=== PATIENT | female | born 1985 | race Caucasian/White ===

== ENCOUNTER 2020-09-20 18:49 | Observation (INO) | payer BC ==
[2020-09-20] MEDS ORDERED: SODIUM CHLORIDE 0.9% 1,000 ML IV STA (19:15)
[2020-09-20] MEDS ORDERED: LORazepam 2 MG/ML INJ IV STA ×2 (19:15→19:20)
--- NOTE | 2020-09-20 19:23 | ED ---
General Adult HPI - General Chief complaint: Abdominal Pain Stated complaint: salvatore from [facility] Time Seen by Provider: 09/20/20 19:14 Source: patient Mode of arrival: ambulatory Limitations: no limitations - History of Present Illness Initial comments: Dictation was produced using [employer] dictation software. please excuse any grammatical, word or spelling errors. This patient was cared for during a federal and state declared state of emergenc y secondary to Covid 19 Chief Complaint: 35-year-old female past medical history of ankylosing spondylitis, alcohol abuse presents with nausea vomiting and abdominal wall tingling for the last couple weeks History of Present Illness: 35-year-old female she's been suffering for multiple days of abdominal, nausea and vomiting. Patient states her emesis is slightly bilious nonbloody. Patient has history of alcohol abuse where she would drink almost a half a fifth of alcohol for a day for a lot of years. Patient states she has not had alcohol and couple weeks after weaning herself off by herself at home. Patient complains of some abdominal tingling that radiates from her epigastric area down to just above her knees. She denies any skin changes. She does have some mild nasal congestion. She also does have some mild diarrhea. She wasn't sure if this was her withdrawals and decided come get checked out because her symptoms aren't improving. She denies ever having been admitted to the hospital for alcohol withdrawals in the past. The ROS documented in this emergency department record has been reviewed and confirmed by me. Those systems with pertinent positive or negative responses have been documented in the HPI. All other systems are other negative and/or noncontributory. PHYSICAL EXAM: General Impression: Alert and oriented x3, not in acute distress HEENT: Normocephalic atraumatic, extra-ocular movements intact, pupils equal and reactive to light bilaterally, mucous membranes moist. Cardiovascular: Heart regular rate and rhythm Chest: Able to complete full sentences, no retractions, no tachypnea Abdomen: abdomen soft, non-tender, non-distended, no organomegaly Musculoskeletal: Pulses present and equal in all extremities, no peripheral edema Motor: no focal deficits noted Neurological: CN II-XII grossly intact, no focal motor or sensory deficits noted Skin: Intact with no visualized rashes Psych: Normal affect and mood ED course:35 year-old female presents with complaints. She is well-appearing and pleasant at bedside. Vital signs upon arrival shows heart rate of 145, rest of vital signs within acceptable limits. Laboratory evaluation obtained. Mild leukocytosis of 12.4 with MCV of 100.7. Platelet count 49, coag panel is negative. Metabolic panel shows potassium 3.3, lactic acidosis of 5.8. Urinalysis shows 2+ ketones. Norris virus is negative. Chest x-ray is nonacute. Patient be admitted for lactic acidosis likely secondary to dehydration. Given multivitamin and thiamine supplementation. Patient's abdominal tingling is likely secondary to malnutrition from alcoholism. - Related Data Home Medications Medication Instructions Recorded Confirmed Benzonatate [Tessalon Perles] 200 mg PO TID PRN 09/20/20 09/20/20 Certolizumab Pegol [Cimzia] 200 mg SQ Q14D 09/20/20 09/20/20 Esomeprazole Magnesium 40 mg PO AC-BRKFST 09/20/20 09/20/20 Iron 130mg 130 mg PO DAILY 09/20/20 09/20/20 Levocetirizine Dihydrochloride 5 mg PO DAILY 09/20/20 09/20/20 [Xyzal] Meloxicam [Mobic] 15 mg PO DAILY 09/20/20 09/20/20 Montelukast [Singulair] 10 mg PO DAILY 09/20/20 09/20/20 Multivitamins, Thera [Multivitamin 1 tab PO DAILY 09/20/20 09/20/20 (formulary)] Ondansetron [Zofran ODT] 4 - 8 mg PO Q8H PRN 09/20/20 09/20/20 Turmeric Root Extract [Turmeric] 1,000 mg PO DAILY 09/20/20 09/20/20 Allergies Allergy/AdvReac Type Severity Reaction Status Date / Time No Known Allergies Allergy Verified 09/20/20 20:40 Review of Systems ROS Statement: Those systems with pertinent positive or pertinent negative responses have been documented in the HPI. ROS Other: All systems not noted in ROS Statement are negative. Past Medical History Additional Past Medical History / Comment(s): ankylosing spondylitis, bilateral salpingectomy. History of Any Multi-Drug Resistant Organisms: None Reported Past Surgical History: Tonsillectomy Past Psychological History: No Psychological Hx Reported Smoking Status: Never smoker Past Alcohol Use History: Abuse, Daily, Heavy Past Drug Use History: None Reported General Exam Limitations: no limitations Course Vital Signs 09/20/20 09/20/20 09/20/20 19:01 19:55 20:00 Temperature 98.6 F Pulse Rate 145 H 96 79 Respiratory 18 18 Rate Blood Pressure 120/91 123/92 123/92 O2 Sat by Pulse 98 96 99 Oximetry 09/20/20 09/20/20 09/20/20 20:30 21:00 21:30 Temperature Pulse Rate 84 Respiratory 18 Rate Blood Pressure 134/93 124/91 130/89 O2 Sat by Pulse 100 98 99 Oximetry Medical Decision Making - Lab Data Result diagrams: 09/20/20 19:44 09/20/20 19:44 Lab Results 09/20/20 09/20/20 09/20/20 Range/Units 19:44 19:44 19:44 WBC 12.4 H (3.8-10.6) k/uL RBC 4.05 (3.80-5.40) m/uL Hgb 13.8 (11.4-16.0) gm/dL Hct 42.0 (34.0-46.0) % MCV 103.7 H (80.0-100.0) fL MCH 33.9 (25.0-35.0) pg MCHC 32.7 (31.0-37.0) g/dL RDW 14.2 (11.5-15.5) % Plt Count 489 H (150-450) k/uL MPV 7.4 Neutrophils % 76 % Lymphocytes % 14 % Monocytes % 8 % Eosinophils % 1 % Basophils % 1 % Neutrophils # 9.4 H (1.3-7.7) k/uL Lymphocytes # 1.7 (1.0-4.8) k/uL Monocytes # 0.9 (0-1.0) k/uL Eosinophils # 0.1 (0-0.7) k/uL Basophils # 0.1 (0-0.2) k/uL Macrocytosis Slight PT (9.0-12.0) sec INR (<1.2) APTT (22.0-30.0) sec Sodium 138 (137-145) mmol/L Potassium 3.3 L (3.5-5.1) mmol/L Chloride 100 (98-107) mmol/L Carbon Dioxide 20 L (22-30) mmol/L Anion Gap 18 mmol/L BUN 5 L (7-17) mg/dL Creatinine 0.73 (0.52-1.04) mg/dL Est GFR (CKD-EPI)AfAm >90 (>60 ml/min/1.73 sqM) Est GFR (CKD-EPI)NonAf >90 (>60 ml/min/1.73 sqM) Glucose 176 H (74-99) mg/dL Plasma Lactic Acid Regino 5.8 H* (0.7-2.0) mmol/L Calcium 9.2 (8.4-10.2) mg/dL Total Bilirubin 1.6 H (0.2-1.3) mg/dL AST 109 H (14-36) U/L ALT 46 H (4-34) U/L Alkaline Phosphatase 123 (38-126) U/L Total Protein 7.6 (6.3-8.2) g/dL Albumin 4.3 (3.5-5.0) g/dL Lipase 394 H (23-300) U/L Urine Color Urine Appearance (Clear) Urine pH (5.0-8.0) Ur Specific [place] (1.001-1.035) Urine Protein (Negative) Urine Glucose (UA) (Negative) Urine Ketones (Negative) Urine Blood (Negative) Urine Nitrite (Negative) Urine Bilirubin (Negative) Urine Urobilinogen (<2.0) mg/dL Ur Leukocyte Esterase (Negative) Urine HCG, Qual (Not Detectd) Serum Alcohol <10 mg/dL Coronavirus (PCR) (Not Detectd) 09/20/20 09/20/20 09/20/20 Range/Units 19:44 19:44 19:44 WBC (3.8-10.6) k/uL RBC (3.80-5.40) m/uL Hgb (11.4-16.0) gm/dL Hct (34.0-46.0) % MCV (80.0-100.0) fL MCH (25.0-35.0) pg MCHC (31.0-37.0) g/dL RDW (11.5-15.5) % Plt Count (150-450) k/uL MPV Neutrophils % % Lymphocytes % % Monocytes % % Eosinophils % % Basophils % % Neutrophils # (1.3-7.7) k/uL Lymphocytes # (1.0-4.8) k/uL Monocytes # (0-1.0) k/uL Eosinophils # (0-0.7) k/uL Basophils # (0-0.2) k/uL Macrocytosis PT 10.8 (9.0-12.0) sec INR 1.1 (<1.2) APTT 24.0 (22.0-30.0) sec Sodium (137-145) mmol/L Potassium (3.5-5.1) mmol/L Chloride (98-107) mmol/L Carbon Dioxide (22-30) mmol/L Anion Gap mmol/L BUN (7-17) mg/dL Creatinine (0.52-1.04) mg/dL Est GFR (CKD-EPI)AfAm (>60 ml/min/1.73 sqM) Est GFR (CKD-EPI)NonAf (>60 ml/min/1.73 sqM) Glucose (74-99) mg/dL Plasma Lactic Acid Regino (0.7-2.0) mmol/L Calcium (8.4-10.2) mg/dL Total Bilirubin (0.2-1.3) mg/dL AST (14-36) U/L ALT (4-34) U/L Alkaline Phosphatase (38-126) U/L Total Protein (6.3-8.2) g/dL Albumin (3.5-5.0) g/dL Lipase (23-300) U/L Urine Color Urine Appearance (Clear) Urine pH (5.0-8.0) Ur Specific [place] (1.001-1.035) Urine Protein (Negative) Urine Glucose (UA) (Negative) Urine Ketones (Negative) Urine Blood (Negative) Urine Nitrite (Negative) Urine Bilirubin (Negative) Urine Urobilinogen (<2.0) mg/dL Ur Leukocyte Esterase (Negative) Urine HCG, Qual Not Detected (Not Detectd) Serum Alcohol mg/dL Coronavirus (PCR) Not Detected (Not Detectd) 09/20/20 Range/Units 19:44 WBC (3.8-10.6) k/uL RBC (3.80-5.40) m/uL Hgb (11.4-16.0) gm/dL Hct (34.0-46.0) % MCV (80.0-100.0) fL MCH (25.0-35.0) pg MCHC (31.0-37.0) g/dL RDW (11.5-15.5) % Plt Count (150-450) k/uL MPV Neutrophils % % Lymphocytes % % Monocytes % % Eosinophils % % Basophils % % Neutrophils # (1.3-7.7) k/uL Lymphocytes # (1.0-4.8) k/uL Monocytes # (0-1.0) k/uL Eosinophils # (0-0.7) k/uL Basophils # (0-0.2) k/uL Macrocytosis PT (9.0-12.0) sec INR (<1.2) APTT (22.0-30.0) sec Sodium (137-145) mmol/L Potassium (3.5-5.1) mmol/L Chloride (98-107) mmol/L Carbon Dioxide (22-30) mmol/L Anion Gap mmol/L BUN (7-17) mg/dL Creatinine (0.52-1.04) mg/dL Est GFR (CKD-EPI)AfAm (>60 ml/min/1.73 sqM) Est GFR (CKD-EPI)NonAf (>60 ml/min/1.73 sqM) Glucose (74-99) mg/dL Plasma Lactic Acid Regino (0.7-2.0) mmol/L Calcium (8.4-10.2) mg/dL Total Bilirubin (0.2-1.3) mg/dL AST (14-36) U/L ALT (4-34) U/L Alkaline Phosphatase (38-126) U/L Total Protein (6.3-8.2) g/dL Albumin (3.5-5.0) g/dL Lipase (23-300) U/L Urine Color Yellow Urine Appearance Clear (Clear) Urine pH 7.5 (5.0-8.0) Ur Specific [place] 1.007 (1.001-1.035) Urine Protein Negative (Negative) Urine Glucose (UA) Negative (Negative) Urine Ketones 2+ H (Negative) Urine Blood Negative (Negative) Urine Nitrite Negative (Negative) Urine Bilirubin Negative (Negative) Urine Urobilinogen 4.0 (<2.0) mg/dL Ur Leukocyte Esterase Negative (Negative) Urine HCG, Qual (Not Detectd) Serum Alcohol mg/dL Coronavirus (PCR) (Not Detectd) Disposition Clinical Impression: Lactic acidosis Disposition: ADMITTED IP TO THIS HOSP Condition: Fair Referrals: None,Stated [Primary Care Provider] - 1-2 days Decision Time: 22:06
[2020-09-20 20:26] LABS: Basophils # (A) 0.1 k/uL (0-0.2); Basophils % (A) 1 %; Eosinophils # (A) 0.1 k/uL (0-0.7); Eosinophils % (A) 1 %; HGB 13.8 gm/dL (11.4-16.0); Lymphocytes # (A) 1.7 k/uL (1.0-4.8); Lymphocytes % (A) 14 %; MCH 33.9 pg (25.0-35.0); MCHC 32.7 g/dL (31.0-37.0); MCV 103.7 fL (80.0-100.0); Macrocytosis Slight; Mean Platelet Volume 7.4; Monocytes # (A) 0.9 k/uL (0-1.0); Monocytes % (A) 8 %; Neutrophils # (A) 9.4 k/uL (1.3-7.7); Neutrophils % (A) 76 %; Platelet Count 489 k/uL (150-450); RBC 4.05 m/uL (3.80-5.40); RDW 14.2 % (11.5-15.5); WBC 12.4 k/uL (3.8-10.6)
[2020-09-20 20:34] LABS: AST 109 U/L (14-36); African American GFR (CKD) >90 (>60 ml/min/1.73 sqM); Albumin 4.3 g/dL (3.5-5.0); Alcohol <10 mg/dL; Alkaline Phosphatase 123 U/L (38-126); Anion Gap 18 mmol/L; Blood Urea Nitrogen 5 mg/dL (7-17); Calcium 9.2 mg/dL (8.4-10.2); Carbon Dioxide 20 mmol/L (22-30); Chloride 100 mmol/L (98-107); Glucose 176 mg/dL (74-99); Lipase 394 U/L (23-300); Non-African American GFR(CKD) >90 (>60 ml/min/1.73 sqM); Potassium 3.3 mmol/L (3.5-5.1); Sodium 138 mmol/L (137-145); Total Bilirubin 1.6 mg/dL (0.2-1.3); Total Protein 7.6 g/dL (6.3-8.2)
[2020-09-20 20:40] LABS: INR 1.1 (<1.2); Prothrombin Time 10.8 sec (9.0-12.0)
[2020-09-20 20:43] LABS: ALT 46 U/L (4-34)
[2020-09-20] MEDS ORDERED: POTASSIUM CHLORIDE 10 MEQ in WATER FOR INJECTION 1 100ML.BAG IVPB STA (21:08)
--- NOTE | 2020-09-20 21:54 | XR ---
EXAMINATION: XR chest 1V portable DATE AND TIME: 09/20/2020 9:42 PM CLINICAL INDICATION: PHH; tachycardia TECHNIQUE: Departmental protocol COMPARISON: None FINDINGS: The lungs are clear. The pleural spaces are negative. The cardiac silhouette is not enlarged. The remainder of the mediastinal silhouette is unremarkable. The skeletal structures and soft tissues are negative for acute findings. IMPRESSION: NO ACUTE PROCESS.
[2020-09-20 22:01] LABS: Appearance,Urine Clear (Clear); Bilirubin,Urine Negative (Negative); Blood,Urine Negative (Negative); Color,Urine Yellow; Glucose,Urine (UA) Negative (Negative); Ketones,Urine 2+ (Negative); Leukocyte Esterase,Urine Negative (Negative); Nitrite,Urine Negative (Negative); PH, Urine 7.5 (5.0-8.0); Protein,Urine Negative (Negative); Specific Gravity,Urine 1.007 (1.001-1.035)
[2020-09-20] MEDS ORDERED: ONDANSETRON 4 MG/2 ML VIAL IVP PRN (22:01)
[2020-09-20] MEDS ORDERED: NALOXONE 0.4 MG/ML 1 ML VIAL IV PRN (22:01)
[2020-09-20] MEDS ORDERED: LORazepam 2 MG/ML INJ IV PRN (22:04)
[2020-09-20] MEDS: SODIUM CHLORIDE 0.9% 1,000 ML IV SCH (23:00)
[2020-09-21] MEDS: MULTIVITAMINS, THERA 1 EACH TAB PO SCH ×2 (00:40→09:05)
--- NOTE | 2020-09-21 01:25 | P.HPIM ---
History of Present Illness H&P Date: 09/20/20 Patient is a 35-year-old female with a PMH of ankylosing spondylitis, EtOH abuse who presents to the emergency room with complaints of intractable nausea and vomiting along with abdominal and chest wall tingling over the past few weeks. The patient notes that she recently quit drinking after several years of drinking one half of a fifth of hard liquor daily and she notes that her last drink was September 07. She notes that 2 days after her last drink, she noticed lower abdominal wall tingling, radiating up towards her chest. The tingling then gradually spread to both sides of her chest and has remained as such over the past few days. She reports an inability to keep down most solids and liquids over the past 2 weeks due to multiple episodes of nonbloody none bilious emesis. She denied abdominal pain but reports daily soft bowel movements. Notes that she initially had some shaking for a few days after her last drink but that all has since resolved. Denied history of alcohol withdrawal or having to be hospitalized for drinking. She also denied visual disturbances, weakness, or urinary complaints. Denied gait disturbances. Denied chest pain, shortness of breath, fever, chills, cough. She underwent an extensive outpatient in the emergency room which was all reviewed. Chest x-ray was unremarkable with EKG showing normal sinus rhythm at 85 bpm with T-wave inversions in leads II, III, aVF, and V1 to V5. Laboratory evaluation was reviewed with a lactic acid of 5.8, potassium 3.3, CO2 20, BUN 5, and a CBC count 12.4, platelets 49, MCV 103.7, AST 109, ALT 46, and a lipase of 394. Coronavirus testing was negative. Review of Systems Pertinent positives and negatives as discussed in HPI, a complete review of systems was performed and all other systems are negative. Past Medical History Additional Past Medical History / Comment(s): ankylosing spondylitis, bilateral salpingectomy. History of Any Multi-Drug Resistant Organisms: None Reported Past Surgical History: Tonsillectomy Past Psychological History: No Psychological Hx Reported Smoking Status: Never smoker Past Alcohol Use History: Abuse, Daily, Heavy Past Drug Use History: None Reported Medications and Allergies Home Medications Medication Instructions Recorded Confirmed Type Benzonatate [Tessalon Perles] 200 mg PO TID PRN 09/20/20 09/20/20 History Certolizumab Pegol [Cimzia] 200 mg SQ Q14D 09/20/20 09/20/20 History Esomeprazole Magnesium 40 mg PO AC-BRKFST 09/20/20 09/20/20 History Iron 130mg 130 mg PO DAILY 09/20/20 09/20/20 History Levocetirizine Dihydrochloride 5 mg PO DAILY 09/20/20 09/20/20 History [Xyzal] Meloxicam [Mobic] 15 mg PO DAILY 09/20/20 09/20/20 History Montelukast [Singulair] 10 mg PO DAILY 09/20/20 09/20/20 History Multivitamins, Thera [Multivitamin 1 tab PO DAILY 09/20/20 09/20/20 History (formulary)] Ondansetron [Zofran ODT] 4 - 8 mg PO Q8H PRN 09/20/20 09/20/20 History Turmeric Root Extract [Turmeric] 1,000 mg PO DAILY 09/20/20 09/20/20 History Allergies Allergy/AdvReac Type Severity Reaction Status Date / Time No Known Allergies Allergy Verified 09/20/20 20:40 Physical Exam Vitals: Vital Signs Temp Pulse Resp BP Pulse Ox 09/20/20 23:02 103 H 18 126/92 97 09/20/20 21:30 84 18 130/89 99 09/20/20 21:00 124/91 98 09/20/20 20:30 134/93 100 09/20/20 20:00 79 18 123/92 99 09/20/20 19:55 96 123/92 96 09/20/20 19:01 98.6 F 145 H 18 120/91 98 Intake and Output 09/20/20 09/20/20 09/21/20 14:59 22:59 06:59 Other: Weight 71.169 kg General: non toxic, no distress, appears at stated age, normal weight Derm: no unusual rashes/lesions no unusual ecchymoses, warm, dry Head: atraumatic, normocephalic, symmetric Eyes: EOMI, no lid lag, anicteric sclera, pupils equal round reactive to light ENT: Nose and ears atraumatic, no thrush, no pharyngeal erythema Neck: No thyromegaly, no cervical lymphadenopathy, trachea midline, supple Mouth: no lip lesion, mucus membranes dry, no tongue fasciculations noted Cardiovascular: S1S2 reg, no murmur, positive posterior tibial pulse bilateral, no edema, capillary refill less than 2 seconds Lungs: CTA bilateral, no rhonchi, no rales , no accessory muscle use Abdominal: soft, nontender to palpation, no guarding, no appreciable organomeg digna, normal bowel sounds Ext: no gross muscle atrophy, muscle strength 5 out of 5 in all 4 extremities grossly, no contractures, Neuro: CN II-XI grossly intact, light touch intact all 4 extremities, some decreased sensation to light touch noted over lower abdomen and upper chest bilaterally, finger to nose within normal limits, no outstretched hand tremor Psych: Alert, oriented, appropriate affect Results CBC & Chem 7: 09/20/20 19:44 09/20/20 19:44 Labs: Abnormal Lab Results - Last 24 Hours (Table) 09/20/20 09/20/20 09/20/20 Range/Units 19:44 19:44 19:44 WBC 12.4 H (3.8-10.6) k/uL MCV 103.7 H (80.0-100.0) fL Plt Count 489 H (150-450) k/uL Neutrophils # 9.4 H (1.3-7.7) k/uL Potassium 3.3 L (3.5-5.1) mmol/L Carbon Dioxide 20 L (22-30) mmol/L BUN 5 L (7-17) mg/dL Glucose 176 H (74-99) mg/dL Plasma Lactic Acid Regino 5.8 H* (0.7-2.0) mmol/L Total Bilirubin 1.6 H (0.2-1.3) mg/dL AST 109 H (14-36) U/L ALT 46 H (4-34) U/L Lipase 394 H (23-300) U/L Urine Ketones (Negative) 09/20/20 Range/Units 19:44 WBC (3.8-10.6) k/uL MCV (80.0-100.0) fL Plt Count (150-450) k/uL Neutrophils # (1.3-7.7) k/uL Potassium (3.5-5.1) mmol/L Carbon Dioxide (22-30) mmol/L BUN (7-17) mg/dL Glucose (74-99) mg/dL Plasma Lactic Acid Regino (0.7-2.0) mmol/L Total Bilirubin (0.2-1.3) mg/dL AST (14-36) U/L ALT (4-34) U/L Lipase (23-300) U/L Urine Ketones 2+ H (Negative) Assessment and Plan Plan: Intractable nausea and vomiting in setting of chronic EtOH abuse -Unclear etiology -Continue with symptomatic management for now -IV fluids -Antiemetics -Continue with thiamine, folic acid, multivitamin Abdominal and chest wall numbness -Obtain neurology consult Hypokalemia -Replace and monitor Lactic acidosis -Monitor for resolution Abnormal LFTs, likely secondary to EtOH abuse -Monitor for now Lipase elevated -Likely due to chronic alcohol abuse -Continue to monitor for now DVT prophylaxis -Heparin subq The patient is admitted with an anticipated less than 2 midnight stay for evaluation of nausea and vomiting CODE STATUS: Full Code Discussed with: Patient Anticipated discharge date: in am Anticipated discharge place: Home A total of 40 minutes was spent on the care of this complex patient more than 50% of the time was spent in counseling and care coordination.
[2020-09-21] MEDS: THIAMINE 100 MG TAB PO SCH ×2 (06:56→09:05)
[2020-09-21 08:03] LABS: HCT 32.4 % (34.0-46.0); HGB 11.5 gm/dL (11.4-16.0); MCH 36.7 pg (25.0-35.0); MCHC 35.6 g/dL (31.0-37.0); Macrocytosis Slight; Mean Platelet Volume 6.8; Platelet Count 297 k/uL (150-450); RBC 3.15 m/uL (3.80-5.40); RDW 13.5 % (11.5-15.5); WBC 6.9 k/uL (3.8-10.6)
[2020-09-21 08:13] LABS: ALT 31 U/L (4-34); AST 67 U/L (14-36); African American GFR (CKD) >90 (>60 ml/min/1.73 sqM); Alkaline Phosphatase 85 U/L (38-126); Anion Gap 5 mmol/L; Blood Urea Nitrogen 3 mg/dL (7-17); Calcium 7.9 mg/dL (8.4-10.2); Carbon Dioxide 27 mmol/L (22-30); Chloride 107 mmol/L (98-107); Glucose 93 mg/dL (74-99); Magnesium 1.5 mg/dL (1.6-2.3); Non-African American GFR(CKD) >90 (>60 ml/min/1.73 sqM); Sodium 139 mmol/L (137-145); Total Bilirubin 1.3 mg/dL (0.2-1.3); Total Protein 5.7 g/dL (6.3-8.2)
[2020-09-21] MEDS ORDERED: THIAMINE 100 MG in SODIUM CHLORIDE 0.9% 50 ML IVPB SCH (09:00)
[2020-09-21] MEDS: HEPARIN SODIUM,PORCINE 5,000 UNIT/ML 1 ML VIAL SQ SCH ×3 (09:05→23:49)
[2020-09-21] MEDS: FOLIC ACID 1 MG TAB PO SCH (09:05)
[2020-09-21] MEDS ORDERED: POTASSIUM CHLORIDE ER 20 MEQ TAB.ER PO STA (09:21)
--- NOTE | 2020-09-21 09:35 | P.CNNES ---
History of Present Illness Consult date: 09/21/20 Requesting physician: Jovanny Tirado Reason for Consult: numbness History of Present Illness: This is a 35-year-old right-handed woman with medical history of ankylosing spondylitis, alcohol abuse the presented emergency department on 09/20/2020 with nausea, vomiting, abdominal pain as well as the tingling in periumbilical region for the last 2 1/2 weeks. The patient drinks about half a fifth of alcohol daily and that has been drinking for last 2-3 years but stopped the day after 2019. Initially for the last 2 and half weeks that she noticed.. Umbilical numbness and tingling and then that she felt like it was normal for moving downwards to her inguinal area and into the breast area she said there is a patchy area just before her breast that felt normal. 2-3 days after that. Umbilical numbness she started having nausea, vomiting and diarrhea and has 3-4 episodes a day. She denies being on any new medications recently. She denies drinking any further alcohol she said she might a drink one the more timesand she felt that she was a and withdrawal other than that she has not been drinking the alcohol at all. She denies any tobacco use or any illicit drug use. Patient feels like she is having generalized weakness. Denies of any visual disturbance, any focal weakness, any difficulty getting her words out or difficulty swallowing. Denies any visual disturbance. She stated that she's a ble to walk without any difficulty. Denies any bladder or bowel incontinence or frequency other than the diarrhea. Denies any fever or coughs. Workup in the hospital consisted of: Initial vital signs: His blood pressure of 120/91, heart rate of 145, respiratory of 18, temperature of 98.6 Fahrenheit oral and pulse ox of 98% room air. No CT of the head was performed. White blood cell on initial presentation 12.4 on repeated 6.9. The MCV is 103.7 the. And platelets 489 which is elevated that. Potassium is 3.3. The glucose serum is 176. The plasma lactic acid is 5.8. AST of 109 and the ALTs 46. The calcium is 9.2 repeated is 7.9. Magnesium is a 1.5 Serum alcohol level was less than 10. Review of Systems Review of system: The 12 point system was reviewed and apparent positive and negative per HPI. Past Medical History Additional Past Medical History / Comment(s): ankylosing spondylitis, bilateral salpingectomy. History of Any Multi-Drug Resistant Organisms: None Reported Past Surgical History: Tonsillectomy Past Anesthesia/Blood Transfusion Reactions: No Reported Reaction Past Psychological History: No Psychological Hx Reported Smoking Status: Never smoker Past Alcohol Use History: Abuse, Daily, Heavy Past Drug Use History: None Reported - Past Family History Father Family Medical History: Asthma, Cancer, Fibromyalgia, Neurologic Disorder Additional Family Medical History / Comment(s): Thyroid cancer, encephalitis, Parkinson's Mother Additional Family Medical History / Comment(s): States, "mom has a lot of cardiac issues. A lot of cancer runs in our family with aunts, uncles and grandparents". Sister(s) Additional Family Medical History / Comment(s): Crohn's. Medications and Allergies Home Medications Medication Instructions Recorded Confirmed Type Benzonatate [Tessalon Perles] 200 mg PO TID PRN 09/20/20 09/20/20 History Certolizumab Pegol [Cimzia] 200 mg SQ Q14D 09/20/20 09/20/20 History Esomeprazole Magnesium 40 mg PO AC-BRKFST 09/20/20 09/20/20 History Iron 130mg 130 mg PO DAILY 09/20/20 09/20/20 History Levocetirizine Dihydrochloride 5 mg PO DAILY 09/20/20 09/20/20 History [Xyzal] Meloxicam [Mobic] 15 mg PO DAILY 09/20/20 09/20/20 History Montelukast [Singulair] 10 mg PO DAILY 09/20/20 09/20/20 History Multivitamins, Thera [Multivitamin 1 tab PO DAILY 09/20/20 09/20/20 History (formulary)] Ondansetron [Zofran ODT] 4 - 8 mg PO Q8H PRN 09/20/20 09/20/20 History Turmeric Root Extract [Turmeric] 1,000 mg PO DAILY 09/20/20 09/20/20 History Allergies Allergy/AdvReac Type Severity Reaction Status Date / Time No Known Allergies Allergy Verified 09/21/20 03:02 Physical Examination - Vital Signs Vital Signs: Vital Signs Temp Pulse Pulse Resp BP BP Pulse Ox 09/21/20 01:15 98.3 F 67 18 125/88 99 09/20/20 23:02 103 H 18 126/92 97 09/20/20 21:30 84 18 130/89 99 09/20/20 21:00 124/91 98 09/20/20 20:30 134/93 100 09/20/20 20:00 79 18 123/92 99 09/20/20 19:55 96 123/92 96 09/20/20 19:01 98.6 F 145 H 18 120/91 98 Intake and Output 09/20/20 09/21/20 09/21/20 22:59 06:59 14:59 Output Total 300 Balance -300 Output: Urine 300 Other: Voiding Method Toilet Weight 71.169 kg 70.307 kg GENERAL: The patient is lying in bed and is not in acute distress. CHEST: The heart rate is regular rate rhythm. No murmurs to auscultation. LUNG: Clear to auscultation bilaterally no wheezing noted throughout. Not labored breathing. ABDOMEN/GI: Bowel sounds present in all 4 quadrants. No tenderness to palpation throughout. NEUROLOGICAL: Higher mental function: The patient is awake, alert, oriented to self, place and time. Patient is following commands. No aphasia and no neglect. Cranial nerves: The pupils are round, equal and reactive to light and accommodation. Visual rahman are full to confrontation throughout. Extraocular movement is intact no nystagmus is noted. Facial sensation is normal to touch throughout. The facial strength is normal throughout. Hearing is normal bilaterally to hand rub. Tongue is midline and moved [id number] without any difficulty. No dysarthria is noted. Shoulder shrug is normal bilaterally. Motor: Gait is deferred. The strength is 5 over 5 throughout. Normal tone and bulk. Cerebellum: Normal finger to nose and heel to ariza bilaterally. Sensation: Sensation was decreased to pinprick around the periumbilical region only otherwise the sensation was normal throughout. Reflexes (right/left): 2+ throughout. Plantars are downgoing bilaterally. Results - Laboratory Findings CBC and BMP: 09/21/20 07:28 09/21/20 07:28 Abnormal Lab Findings: Abnormal Labs 09/20/20 09/20/20 09/20/20 19:44 19:44 19:44 WBC 12.4 H RBC Hct MCV 103.7 H MCH Plt Count 489 H Neutrophils # 9.4 H Potassium 3.3 L Carbon Dioxide 20 L BUN 5 L Glucose 176 H Plasma Lactic Acid Regino 5.8 H* Calcium Magnesium Total Bilirubin 1.6 H AST 109 H ALT 46 H Total Protein Albumin Lipase 394 H Urine Ketones 09/20/20 09/21/20 09/21/20 19:44 07:28 07:28 WBC RBC 3.15 L Hct 32.4 L MCV 103.0 H MCH 36.7 H Plt Count Neutrophils # Potassium 3.0 L Carbon Dioxide BUN 3 L Glucose Plasma Lactic Acid Regino Calcium 7.9 L Magnesium 1.5 L Total Bilirubin AST 67 H ALT Total Protein 5.7 L Albumin 3.0 L Lipase Urine Ketones 2+ H Assessment and Plan Assessment: This is a 35-year-old woman with history of alcohol abuse, ankles and spondylitis the presented emergency department on 09/20/2020 because of nausea, vomiting, abdominal pain and tingling for the last couple weeks. Paresthesia around the periumbilical region possibly due to electrode imbalance, and possibly vitamin D she deficiency especially with macrocytosis. Need to rule out any thoracic or lumbar legion. Macrocytosis likely from folate or vitamin B12 deficiency from alcohol use. Electrolyte imbalance (hypomagnesemia, hypokalemia) Alcohol abuse Elevated AST more than ALT due to alcohol use Leukocytosis likely reactive Elevated Lipase Plan: Ordered folic acid level and vitamin B12 level. I also ordered ionized calcium. Thiamine 100 mg daily is ordered by the ED team and we will change it to IV since the patient continues to have vomiting and diarrhea. Start the patient on the vitamin B12 IM 1000 g daily and once the patient vomiting and diarrhea subsides we can change it to by mouth. Patient is started on folic acid 1 mg daily by the primary team. Ordered MRI of the thoracic and the lumbar to rule out any lesion. Ordered CT of the head of the brain to rule out any intracranial process which I highly doubt. She was counseled on the alcohol cessation. We'll defer the electrolyte imbalance management to the primary team. The patient was counseled on continuing to abstain from alcohol use. The plan was discussed with the patient as well as with the primary team. Thank you for the consultation. Nahun Steinberg M.D. Neuro-hospitalist Time with Patient: Greater than 30
[2020-09-21 10:40] LABS: Ionized Calcium 4.7 mg/dL (4.5-5.3)
--- NOTE | 2020-09-21 11:00 | P.PN ---
Subjective Progress Note Date: 09/21/20 No new complaints. Ongoing numbness surrounding the umbilicus. Objective - Vital Signs Vital signs: Vital Signs Temp 97.3 F L 09/21/20 08:20 Pulse 96 09/21/20 08:20 Resp 16 09/21/20 08:20 BP 133/88 09/21/20 08:20 Pulse Ox 96 09/21/20 08:20 Intake & Output 09/20/20 09/21/20 09/21/20 18:59 06:59 18:59 Output Total 300 Balance -300 Weight 70.307 kg Output: Urine 300 Other: Voiding Method Toilet - Exam Gen: awake, alert HEENT: normocephalic, atraumatic, good hearing acuity, moist mucous membranes Resp: good air exchange, breathing comfortably with no accessory muscle use CVS: good distal perfusion x 4, GI: soft, NTTP, ND : no SPT, no CVAT, bond catheter not present MSK: no pitting edema, no clubbing Neuro: non-focal, moving all extremities Psych: cooperative, euthymic mood - Labs CBC & Chem 7: 09/21/20 07:28 09/21/20 07:28 Labs: Abnormal Lab Results - Last 24 Hours (Table) 09/20/20 09/20/20 09/20/20 Range/Units 19:44 19:44 19:44 WBC 12.4 H (3.8-10.6) k/uL RBC (3.80-5.40) m/uL Hct (34.0-46.0) % MCV 103.7 H (80.0-100.0) fL MCH (25.0-35.0) pg Plt Count 489 H (150-450) k/uL Neutrophils # 9.4 H (1.3-7.7) k/uL Potassium 3.3 L (3.5-5.1) mmol/L Carbon Dioxide 20 L (22-30) mmol/L BUN 5 L (7-17) mg/dL Glucose 176 H (74-99) mg/dL Plasma Lactic Acid Regino 5.8 H* (0.7-2.0) mmol/L Calcium (8.4-10.2) mg/dL Magnesium (1.6-2.3) mg/dL Total Bilirubin 1.6 H (0.2-1.3) mg/dL AST 109 H (14-36) U/L ALT 46 H (4-34) U/L Total Protein (6.3-8.2) g/dL Albumin (3.5-5.0) g/dL Lipase 394 H (23-300) U/L Urine Ketones (Negative) 09/20/20 09/21/20 09/21/20 Range/Units 19:44 07:28 07:28 WBC (3.8-10.6) k/uL RBC 3.15 L (3.80-5.40) m/uL Hct 32.4 L (34.0-46.0) % MCV 103.0 H (80.0-100.0) fL MCH 36.7 H (25.0-35.0) pg Plt Count (150-450) k/uL Neutrophils # (1.3-7.7) k/uL Potassium 3.0 L (3.5-5.1) mmol/L Carbon Dioxide (22-30) mmol/L BUN 3 L (7-17) mg/dL Glucose (74-99) mg/dL Plasma Lactic Acid Regino (0.7-2.0) mmol/L Calcium 7.9 L (8.4-10.2) mg/dL Magnesium 1.5 L (1.6-2.3) mg/dL Total Bilirubin (0.2-1.3) mg/dL AST 67 H (14-36) U/L ALT (4-34) U/L Total Protein 5.7 L (6.3-8.2) g/dL Albumin 3.0 L (3.5-5.0) g/dL Lipase (23-300) U/L Urine Ketones 2+ H (Negative) Assessment and Plan Assessment: Intractable nausea and vomiting in setting of chronic EtOH abuse -Unclear etiology -Continue with symptomatic management for now -IV fluids -Antiemetics -Continue with thiamine, folic acid, multivitamin Abdominal and chest wall numbness -Obtain neurology consult Hypokalemia -Replace and monitor Lactic acidosis -Monitor for resolution Abnormal LFTs, likely secondary to EtOH abuse -Monitor for now Lipase elevated -Likely due to chronic alcohol abuse -Continue to monitor for now DVT prophylaxis -Heparin subq The patient is admitted with an anticipated less than 2 midnight stay for evaluation of nausea and vomiting CODE STATUS: Full Code Discussed with: Patient Anticipated discharge date: in am Anticipated discharge place: Home
[2020-09-21] MEDS: MAGNESIUM SULFATE-D5W PMX 1 GM in DEXTROSE/WATER 1 100ML.BAG IVPB SCH ×4 (11:23→14:40)
--- NOTE | 2020-09-21 12:52 | CT ---
EXAMINATION TYPE: CT brain wo con DATE OF EXAM: 09/21/2020 COMPARISON: None HISTORY: 35-year-old female paresthesias and generalized weakness TECHNIQUE: Examination was done in axial plane without intravenous contrast. Coronal and sagittal r econstructions performed. CT DLP: 1113.4 mGycm Automated exposure control for dose reduction was used. FINDINGS: There is no evidence of acute intracranial hemorrhage, acute ischemic changes, mass, mass-effect, or extra-axial fluid collection. There is no effacement of cerebral sulci or basal subarachnoid cister ns. There is no hydrocephalus. There is no midline shift. Golden-white matter distinction is preserv ed. Some mucosal thickening along the posterior wall of the left sphenoid sinus. Leftward nasal septal de viation. Mastoid air cells are well pneumatized. Orbits and globes appear intact. IMPRESSION: No acute intracranial abnormality seen. Mild sphenoid sinus disease.
[2020-09-21 14:40] VITALS: BMI 26.6
[2020-09-21] MEDS: CYANOCOBALAMIN 1,000 MCG/ML 1 ML VIAL IM SCH (15:41)
[2020-09-21] MEDS: POTASSIUM CHLORIDE 10 MEQ in WATER FOR INJECTION 1 100ML.BAG IVPB SCH ×2 (15:45→16:58)
[2020-09-21] MEDS ORDERED: PANTOPRAZOLE 40 MG TABLET PO STA (21:10)
[2020-09-21] MEDS: SODIUM CHLORIDE 0.9% 1,000 ML IV SCH ×3 (21:39→21:43)
[2020-09-21] MEDS: POTASSIUM CHLORIDE ER 20 MEQ TAB.ER PO SCH ×2 (21:40→23:49)
[2020-09-22 06:40] LABS: African American GFR (CKD) >90 (>60 ml/min/1.73 sqM); Anion Gap 5 mmol/L; Blood Urea Nitrogen <2 mg/dL (7-17); Calcium 7.8 mg/dL (8.4-10.2); Carbon Dioxide 25 mmol/L (22-30); Chloride 111 mmol/L (98-107); Glucose 89 mg/dL (74-99); Non-African American GFR(CKD) >90 (>60 ml/min/1.73 sqM); Potassium 3.7 mmol/L (3.5-5.1); Sodium 141 mmol/L (137-145)
[2020-09-22] MEDS: PANTOPRAZOLE 40 MG TABLET PO SCH (06:41)
[2020-09-22] MEDS: ACETAMINOPHEN TAB 325 MG TAB PO PRN ×2 (06:43→18:06)
[2020-09-22] MEDS: THIAMINE 100 MG in SODIUM CHLORIDE 0.9% 50 ML IVPB SCH (09:09)
[2020-09-22] MEDS: HEPARIN SODIUM,PORCINE 5,000 UNIT/ML 1 ML VIAL SQ SCH ×2 (09:10→16:14)
[2020-09-22] MEDS: CYANOCOBALAMIN 1,000 MCG/ML 1 ML VIAL IM SCH (09:10)
[2020-09-22] MEDS: FOLIC ACID 1 MG TAB PO SCH (09:10)
[2020-09-22] MEDS: MULTIVITAMINS, THERA 1 EACH TAB PO SCH (09:10)
--- NOTE | 2020-09-22 17:47 | P.PN ---
Subjective Progress Note Date: 09/22/20 No new complaints today, electrolytes repleted ,appetite improving. Objective - Vital Signs Vital signs: Vital Signs Temp 97.8 F 09/22/20 15:00 Pulse 89 09/22/20 15:00 Resp 16 09/22/20 15:00 BP 131/93 09/22/20 15:00 Pulse Ox 97 09/22/20 15:00 Intake & Output 09/21/20 09/22/20 09/22/20 18:59 06:59 18:59 Intake Total 700 480 Balance 700 480 Weight 70.307 kg Intake: Intake, IV Titration 700 Amount Magnesium Sulfate-D5w Pmx 300 1 gm In Dextrose/Water 1 100ml.bag @ 100 mls/hr IVPB Q1H [facility] Rx#: [id number] Sodium Chloride 0.9% 1, 400 000 ml @ 110 mls/hr IV . Q9H6M [facility] Rx#:[id number] Oral 480 Other: Voiding Method Toilet # Voids 2 3 - Exam Gen: awake, alert HEENT: normocephalic, atraumatic, good hearing acuity, moist mucous membranes Resp: good air exchange, breathing comfortably with no accessory muscle use CVS: good distal perfusion x 4, GI: soft, NTTP, ND : no SPT, no CVAT, bond catheter not present MSK: no pitting edema, no clubbing Neuro: non-focal, moving all extremities Psych: cooperative, euthymic mood - Labs CBC & Chem 7: 09/21/20 07:28 09/22/20 06:03 Labs: Abnormal Lab Results - Last 24 Hours (Table) 09/21/20 09/22/20 Range/Units 19:37 06:03 Potassium 3.0 L (3.5-5.1) mmol/L Chloride 111 H (98-107) mmol/L BUN <2 L (7-17) mg/dL Calcium 7.8 L (8.4-10.2) mg/dL Assessment and Plan Assessment: Intractable nausea and vomiting in setting of chronic EtOH abuse -Unclear etiology -Continue with symptomatic management for now -IV fluids -Antiemetics -Continue with thiamine, folic acid, multivitamin Abdominal and chest wall numbness -Obtain neurology consult Hypokalemia -Replace and monitor Lactic acidosis -Monitor for resolution Abnormal LFTs, likely secondary to EtOH abuse -Monitor for now Lipase elevated -Likely due to chronic alcohol abuse -Continue to monitor for now DVT prophylaxis -Heparin subq The patient is admitted with an anticipated less than 2 midnight stay for evaluation of nausea and vomiting CODE STATUS: Full Code Discussed with: Patient Anticipated discharge date: in am Anticipated discharge place: Home
[2020-09-22] MEDS: SODIUM CHLORIDE 0.9% 1,000 ML IV SCH ×2 (18:09→20:52)
[2020-09-23] MEDS: HEPARIN SODIUM,PORCINE 5,000 UNIT/ML 1 ML VIAL SQ SCH ×2 (01:11→08:05)
[2020-09-23] MEDS: SODIUM CHLORIDE 0.9% 1,000 ML IV SCH (01:20)
[2020-09-23 02:22] VITALS: RESP 16
[2020-09-23] MEDS: ACETAMINOPHEN TAB 325 MG TAB PO PRN (08:03)
[2020-09-23] MEDS: MULTIVITAMINS, THERA 1 EACH TAB PO SCH (08:03)
[2020-09-23] MEDS: PANTOPRAZOLE 40 MG TABLET PO SCH (08:03)
[2020-09-23] MEDS: FOLIC ACID 1 MG TAB PO SCH (08:03)
[2020-09-23] MEDS: CYANOCOBALAMIN 1,000 MCG/ML 1 ML VIAL IM SCH (08:04)
[2020-09-23] MEDS: THIAMINE 100 MG in SODIUM CHLORIDE 0.9% 50 ML IVPB SCH (08:10)
[2020-09-23 08:35] VITALS: BP 124/85; PULSE 78; TEMP 98
--- NOTE | 2020-09-23 14:46 | P.DS ---
Providers Date of admission: 09/20/20 22:03 Expected date of discharge: 09/23/20 Attending physician: Jovanny Tirado MD Consults: 09/21/20 01:24 Consult Physician Urgent Consulting Provider: Nahun Steinberg Consult Reason/Comments: numbness Do you want consulting provider notified?: Yes Primary care physician: Stated None Hospital Course: Intractable nausea and vomiting in setting of chronic EtOH abuse -Unclear etiology, but improved with fluids -Electrolytes were replaced -Antiemetics, no vomiting episodes during hospitalization -Continued with thiamine, folic acid, multivitamin on discharge Abdominal and chest wall numbness -Obtain neurology consult, recommended MRI T-Spine which was completed, but report pending on discharge, PCP will follow up. Hypokalemia -Replace and monitor, normal on discharge. Lactic acidosis -Monitor for resolution, resolved on discharge. Abnormal LFTs, likely secondary to EtOH abuse -Monitored for now, improved on discharge. Patient was treated with volume resuscitation and electrolyte replacement and symptoms resolved with the exception of umbilical numbness. Patient obtained T/L-spine MRI, with result pending on discharge. Assessment: Gen: awake, alert HEENT: normocephalic, atraumatic, good hearing acuity, moist mucous membranes Resp: good air exchange, breathing comfortably with no accessory muscle use CVS: good distal perfusion x 4, GI: soft, NTTP, ND : no SPT, no CVAT, bond catheter not present MSK: no pitting edema, no clubbing Neuro: non-focal, moving all extremities Psych: cooperative, euthymic mood Patient Condition at Discharge: Good Plan - Discharge Summary Discharge Rx Participant: Yes New Discharge Prescriptions: Continue Multivitamins, Thera [Multivitamin (formulary)] 1 tab PO DAILY Iron 130mg 130 mg PO DAILY Turmeric Root Extract [Turmeric] 1,000 mg PO DAILY Ondansetron [Zofran ODT] 4 - 8 mg PO Q8H PRN PRN Reason: Nausea Montelukast [Singulair] 10 mg PO DAILY Levocetirizine Dihydrochloride [Xyzal] 5 mg PO DAILY Esomeprazole Magnesium 40 mg PO AC-BRKFST Certolizumab Pegol [Cimzia] 200 mg SQ Q14D Benzonatate [Tessalon Perles] 200 mg PO TID PRN PRN Reason: Cough Discontinued Meloxicam [Mobic] 15 mg PO DAILY Discharge Medication List Benzonatate [Tessalon Perles] 200 mg PO TID PRN 09/20/20 [History] Certolizumab Pegol [Cimzia] 200 mg SQ Q14D 09/20/20 [History] Esomeprazole Magnesium 40 mg PO AC-BRKFST 09/20/20 [History] Iron 130mg 130 mg PO DAILY 09/20/20 [History] Levocetirizine Dihydrochloride [Xyzal] 5 mg PO DAILY 09/20/20 [History] Montelukast [Singulair] 10 mg PO DAILY 09/20/20 [History] Multivitamins, Thera [Multivitamin (formulary)] 1 tab PO DAILY 09/20/20 [History] Ondansetron [Zofran ODT] 4 - 8 mg PO Q8H PRN 09/20/20 [History] Turmeric Root Extract [Turmeric] 1,000 mg PO DAILY 09/20/20 [History] Follow up Appointment(s)/Referral(s): None,Stated [Primary Care Provider] - 1-2 days Patient Instructions/Handouts: Alcohol Withdrawal (DC) Activity/Diet/Wound Care/Special Instructions: any worsening or concerning symptoms return to the hospital or notify your
--- NOTE | 2020-09-25 07:30 | MR ---
EXAMINATION TYPE: MR tspine/lspine wo/w con DATE OF EXAM: 09/22/2020 COMPARISON: None HISTORY: Paresthesia. Umbilical region CONTRAST: Performed utilizing 7 mL intravenous Gadavist gadolinium contrast. TECHNIQUE: Multiplanar, multiecho imaging on a 3.0 Yenny magnet is performed through the thoracic spi ne. Spinal cord maintains normal signal through its visualized course. Vertebral body alignment is normal. Vertebral body heights are preserved. Disc heights are preserved. Disc hydration levels are preserved. No spinal canal stenosis is evident. IMPRESSIONS: 1. Normal MRI thoracic spine EXAMINATION TYPE: MR tspine/lspine wo/w con DATE OF EXAM: 09/22/2020 COMPARISON: None HISTORY: Paresthesia periumbilical region CONTRAST: 7 mL intravenous Gadavist. TECHNIQUE: Multiplanar, multisequence images of the lumbar spine were acquired. FINDINGS: Cord terminates at the L1 level. Disc height and vertebral body heights are preserved. No focal disc herniation or significant disc bulge is evident. There is some disc desiccation at the L4-5 level. No abnormal enhancement. IMPRESSION: 1. Disc desiccation L4-5.
== END 2020-09-23 14:48 ==
LOC: EC 18:49 → 1SOBS 22:03 → 6PED 09-21 01:13
PROVIDERS: ADMIT Internal Medicine; ATTEND Internal Medicine
DX: E87.2 Acidosis (principal); R11.2 Nausea with vomiting, unspecified; E86.0 Dehydration; F10.10 Alcohol abuse, uncomplicated; R20.0 Anesthesia of skin; R20.2 Paresthesia of skin; R09.81 Nasal congestion; D72.829 Elevated white blood cell count, unspecified; R74.8 Abnormal levels of other serum enzymes; D75.89 Other specified diseases of blood and blood-forming organs; E83.42 Hypomagnesemia; E87.6 Hypokalemia; R94.5 Abnormal results of liver function studies; R10.9 Unspecified abdominal pain; M45.9 Ankylosing spondylitis of unspecified sites in spine; R74.01 Elevation of levels of liver transaminase levels; M51.36 Other intervertebral disc degeneration, lumbar region; Z20.828 Contact with and (suspected) exposure to other viral communicable diseases; Z79.1 Long term (current) use of non-steroidal anti-inflammatories (NSAID); Z79.899 Other long term (current) drug therapy; Z90.79 Acquired absence of other genital organ(s); Z82.5 Family history of asthma and other chronic lower respiratory diseases; Z80.8 Family history of malignant neoplasm of other organs or systems; Z82.0 Family history of epilepsy and other diseases of the nervous system; Z83.79 Family history of other diseases of the digestive system; Z82.69 Family history of other diseases of the musculoskeletal system and connective tissue
CPT/HCPCS: 96361 ×4; 96366 ×3; 96367 ×2; 96372 ×3; 96365; 96375; 99285; 36415; 93005; 82747; 80053 ×2; 80048; 82330; 82607; 83605; 83690; 83735; 84132; 84484; 85025; 85027; 85610; 85730; 81003; 81025; 80320; 87635; 71045; 70450; 72157; 72158; G0378 ×5; J2060; J3420 ×3; J1644 ×3; J3411 ×2; J3475; J3480 ×2; A9585